=== PATIENT | male | born 1955 | race Caucasian/White ===

== ENCOUNTER 2021-11-24 10:10 | Inpatient (IN) | payer MEDICARE, OTHER ==
[2021-11-24] MEDS ORDERED: Enoxaparin Sodium 80 MG/0.8 ML SYRINGE ONE (11:07)
[2021-11-24] MEDS ORDERED: Diltiazem 125 MG/25 ML ONE (11:07)
[2021-11-24 11:11] LABS: Hemoglobin 14.7 g/dL (13.5-17.5); Mean Corpuscular HGB CONC 34.5 g/dL (32.0-36.0); Mean Corpuscular Hemoglobin 31.8 pg (27.0-33.0); Mean Corpuscular Volume 92.2 fl (81.2-95.1); Mean Platelet Volume 10.3 fl (7.4-10.4); Platelet Count 210 10x3/uL (150-450); RBC Distribution Width 13.6 % (11.5-14.5); Red Blood Cell (RBC) Count 4.62 10x6/uL (4.32-5.72); White Blood Cell (WBC) Count 7.2 10x3/uL (3.5-10.5)
[2021-11-24 11:13] LABS: MDiff Complete? YES
[2021-11-24 11:14] LABS: PTT 27.6 sec (22.0-33.0); Prothrombin Time 10.6 sec (9.5-12.1)
[2021-11-24 11:19] LABS: ALT (SGPT) 16 U/L (8-55); AST (SGOT) 22 U/L (5-34); Albumin 3.8 g/dL (3.4-4.8); Alkaline Phosphatase 74 U/L (40-110); Anion Gap 14 mmol/L (10-20); BUN (Urea Nitrogen) 13 mg/dL (8.4-25.7); Bilirubin, Total 0.4 mg/dL (0.2-1.2); Calc. Creatinine Clearance 0 mL/min (70-130); Calcium 9.8 mg/dL (7.8-10.44); Carbon Dioxide 20 mmol/L (23-31); Chloride 105 mmol/L (98-107); Globulin 3.1 g/dL (2.4-3.5); Glucose 118 mg/dL (80-115); Potassium 4.2 mmol/L (3.5-5.1); Protein, Total 6.9 g/dL (5.8-8.1); Sodium 135 mmol/L (136-145)
[2021-11-24 11:38] LABS: Band 1 % (5-11); Eosinophils 2 % (0-10); Lymphocytes 25 % (21-51); Monocytes 13 % (0-10); Neutrophil 58 % (42-75); Reactive Lymphocytes 1 % (0-10)
[2021-11-24 11:39] LABS: Platelet Morphology Comment Appears Adequate
[2021-11-24 11:40] LABS: RBC Morphology Normal
[2021-11-24] MEDS ORDERED: Ondansetron PF 4 MG/2 ML Vial IVP PRN ×2 (14:35→17:29)
[2021-11-24] MEDS ORDERED: Acetaminophen 325 MG TAB PO PRN (14:35)
[2021-11-24] MEDS ORDERED: Senokot S 8.6-50 MG TAB PO PRN ×2 (14:35→17:29)
[2021-11-24] MEDS ORDERED: Ondansetron ODT 4 MG TAB PO PRN ×2 (14:35→17:29)
[2021-11-24] MEDS ORDERED: Bisacodyl 5 MG TAB PO PRN ×2 (14:35→17:29)
[2021-11-24 15:16] LABS: Troponin I Less than 0.010 ng/mL (< 0.028)
[2021-11-24 15:23] LABS: Magnesium 1.8 mg/dL (1.6-2.6)
[2021-11-24] MEDS ORDERED: Acetaminophen 500 MG TAB PO SCH (16:00)
[2021-11-24] MEDS ORDERED: Acetaminophen 325 MG TAB ONE (16:32)
[2021-11-24 18:30] VITALS: BMI 24.5
[2021-11-24] MEDS: Acetaminophen 500 MG TAB PO SCH ×2 (18:44→21:53)
[2021-11-24] MEDS ORDERED: Ketorolac Tromethamine 30 MG/ML VIAL IVP SCH (20:15)
[2021-11-24] MEDS ORDERED: diphenhydrAMINE 50 MG CAP PO SCH (21:15)
[2021-11-25] MEDS ORDERED: Diltiazem 125 MG in Sodium Chloride 0.9% 100 ML IVPB SCH ×2 (00:30→11:38)
[2021-11-25] MEDS ORDERED: Enoxaparin Sodium 80 MG/0.8 ML SYRINGE SC SCH ×2 (09:00→21:00)
[2021-11-25] MEDS ORDERED: Enoxaparin Sodium 30 MG/0.3 ML SYRINGE SC SCH ×2 (09:00)
[2021-11-25] MEDS: Acetaminophen 325 MG TAB PO PRN ×2 (09:38→20:47)
[2021-11-25] MEDS: Metoprolol Tartrate 25 MG TAB PO SCH ×2 (09:38→20:46)
[2021-11-25] MEDS: Diclofenac 1% 100 GM GEL TP SCH ×4 (09:39→20:48)
[2021-11-25] MEDS ORDERED: Diclofenac 1% 100 GM GEL TP SCH (13:00)
[2021-11-25] MEDS: Atorvastatin Calcium 40 MG TAB PO SCH (20:45)
[2021-11-25] MEDS: Apixaban 5 MG TAB PO SCH (20:45)
[2021-11-26] MEDS: Acetaminophen 325 MG TAB PO PRN ×2 (05:28→16:02)
[2021-11-26 05:39] LABS: Cardiac Risk 5.1 (Less than 4.5)
[2021-11-26] MEDS: Metoprolol Tartrate 25 MG TAB PO SCH ×2 (09:17→21:38)
[2021-11-26] MEDS: Apixaban 5 MG TAB PO SCH ×2 (09:17→21:38)
[2021-11-26] MEDS: Diclofenac 1% 100 GM GEL TP SCH ×4 (09:18→21:43)
[2021-11-26] MEDS ORDERED: Metoprolol Tartrate 25 MG TAB PO SCH (10:45)
[2021-11-26] MEDS ORDERED: traZODone HCl 150 MG TAB PO SCH (20:45)
[2021-11-26] MEDS: Atorvastatin Calcium 40 MG TAB PO SCH (21:38)
[2021-11-27] MEDS: Diclofenac 1% 100 GM GEL TP SCH ×2 (08:36→13:13)
[2021-11-27] MEDS: Apixaban 5 MG TAB PO SCH (08:38)
[2021-11-27] MEDS: Metoprolol Tartrate 25 MG TAB PO SCH (11:09)
[2021-11-27 11:12] VITALS: BP 103/62; TEMP 98.3
[2021-11-27] MEDS ORDERED: Sodium Chloride 0.9% 250 ML IV SCH (13:00)
== END 2021-11-27 15:21 | disposition home or self-care (01) | DRG 308 ==
LOC: SUATTDRO 10:10 → CSHERS 10:10 → CSHTELE 17:28
PROVIDERS: ADMIT Family Medicine; ATTEND Internal Medicine
DX: I48.91 Unspecified atrial fibrillation (principal); I50.43 Acute on chronic combined systolic (congestive) and diastolic (congestive) heart failure; J44.9 Chronic obstructive pulmonary disease, unspecified; G47.00 Insomnia, unspecified; F17.210 Nicotine dependence, cigarettes, uncomplicated; I95.9 Hypotension, unspecified; I25.10 Atherosclerotic heart disease of native coronary artery without angina pectoris; K40.90 Unilateral inguinal hernia, without obstruction or gangrene, not specified as recurrent; I45.10 Unspecified right bundle-branch block; Z20.822 Contact with and (suspected) exposure to COVID-19; I25.2 Old myocardial infarction; Z88.5 Allergy status to narcotic agent; Z88.8 Allergy status to other drugs, medicaments and biological substances; Z85.47 Personal history of malignant neoplasm of testis; Z98.890 Other specified postprocedural states; Z92.21 Personal history of antineoplastic chemotherapy; Z82.49 Family history of ischemic heart disease and other diseases of the circulatory system; Z90.5 Acquired absence of kidney; Z90.79 Acquired absence of other genital organ(s); Z90.49 Acquired absence of other specified parts of digestive tract; Z79.899 Other long term (current) drug therapy; Z88.0 Allergy status to penicillin; Z86.73 Personal history of transient ischemic attack (TIA), and cerebral infarction without residual deficits; Z79.01 Long term (current) use of anticoagulants
CPT/HCPCS: 36415; 71045; 74176; 80053; 80061; 83735; 83880; 84443; 84484; 85025; 85610; 85730; 93005; 93010; 93306; 96365; 96366; 96372; 96376; J1650; J3490; J7030; U0003; U0005